=== PATIENT | female | born 1960 ===

== ENCOUNTER 2018-08-11 02:34 | Observation (INO) | payer OTHER ==
--- NOTE | 2018-08-11 03:01 | ED PDOC ---
Arrival/HPI - General Chief Complaint: Chest Pain Time Seen by Provider: 08/11/18 02:42 Historian: Patient - History of Present Illness Narrative History of Present Illness (Text): 08/11/18 02:57 Jenifer Fleming is a 57 year old female, whose past medical history includes hypertension, who presents to the emergency department complaining of chest pain. Patient states she has been experiencing intermittent chest pain radiating to her back and left arm for the past few days, worse after waking up today. Patient also reports some shortness of breath. Patient denies any abdominal pain, nausea, vomiting, diarrhea, urinary symptoms, back pain, neck pain, headache, dizziness, or any other complaints. Symptom Onset: Gradual Symptom Course: Unchanged Activities at Onset: Light Context: Home Past Medical History - Provider Review Nursing Documentation Reviewed: Yes - Reproductive Menopause: Yes - Psychiatric Hx Substance Use: No Family/Social History - Physician Review Nursing Documentation Reviewed: Yes Family/Social History: Unknown Family HX Smoking Status: Never Smoked Hx Alcohol Use: No Hx Substance Use: No Allergies/Home Meds Allergies/Adverse Reactions: Allergies No Known Allergies Allergy (Verified 08/11/18 03:14) Review of Systems - Physician Review All systems were reviewed & negative as marked: Yes - Review of Systems Constitutional: Normal. absent: Fevers Eyes: Normal ENT: Normal Respiratory: SOB Cardiovascular: Chest Pain Gastrointestinal: Normal. absent: Abdominal Pain, Diarrhea, Nausea, Vomiting Genitourinary Female: Normal. absent: Dysuria, Frequency, Hematuria, Urine Output Changes Musculoskeletal: Back Pain. absent: Neck Pain Skin: Normal. absent: Rash Neurological: Normal. absent: Headache, Dizziness Endocrine: Normal Hemo/Lymphatic: Normal Psychiatric: Normal Physical Exam Vital Signs Reviewed: Yes Vital Signs Temp Pulse Resp BP Pulse Ox 08/11/18 02:42 97.6 F 63 16 142/79 98 Temperature: Afebrile Blood Pressure: Normal Pulse: Regular Respiratory Rate: Normal Appearance: Positive for: Well-Appearing, Non-Toxic, Comfortable Pain Distress: None Mental Status: Positive for: Alert and Oriented X 3 - Systems Exam Head: Present: Atraumatic, Normocephalic Pupils: Present: PERRL Extroacular Muscles: Present: EOMI Conjunctiva: Present: Normal Mouth: Present: Moist Mucous Membranes Neck: Present: Normal Range of Motion Respiratory/Chest: Present: Clear to Auscultation, Good Air Exchange. No: Respiratory Distress, Accessory Muscle Use Cardiovascular: Present: Regular Rate and Rhythm, Normal S1, S2. No: Murmurs Abdomen: No: Tenderness, Distention, Peritoneal Signs Back: Present: Normal Inspection Upper Extremity: Present: Normal Inspection. No: Cyanosis, Edema Lower Extremity: Present: Normal Inspection. No: Edema Neurological: Present: GCS=15, CN II-XII Intact, Speech Normal Skin: Present: Warm, Dry, Normal Color. No: Rashes Psychiatric: Present: Alert, Oriented x 3, Normal Insight, Normal Concentration Medical Decision Making ED Course and Treatment: 08/11/18 02:57 Impression: 57 year old female complaining of chest pain for the past few days. Plan: -- EKG -- CXR -- Labs, cardiac enzymes -- Reassess and disposition Prior Visits: Notes and results from previous visits were reviewed. Progress Notes: Reviewed EKG, NSR at [address]-segment elevations or depressions, no T-wave inversions, normal intervals. 08/11/18 04:37 CXR reviewed, shows no acute processes. 08/11/18 05:22 Case discussed with medical record administrator international organizer and , who agree with plan. Accept pt in to hospitalist service. Pt will go to remote telemetry observation for chest pain. - Lab Interpretations I have reviewed the lab results: Yes - RAD Interpretation Insurance Claims Analyst: ED Physician - EKG Interpretation Interpreted by ED Physician: Yes Type: 12 lead EKG - Scribe Statement The provider has reviewed the documentation as recorded by the Jessica Brown Provider Scribe Attestation: All medical record entries made by the Jessica were at my direction and personally dictated by me. I have reviewed the chart and agree that the record accurately reflects my personal performance of the history, physical exam, medical decision making, and the department course for this patient. I have also personally directed, reviewed, and agree with the discharge instructions and disposition. Disposition/Present on Arrival - Present on Arrival Any Indicators Present on Arrival: No History of DVT/PE: No History of Uncontrolled Diabetes: No Urinary Catheter: No History of Decub. Ulcer: No History Surgical Site Infection Following: None - Disposition Have Diagnosis and Disposition been Completed?: Yes Diagnosis: Chest pain Disposition: HOSPITALIZED Disposition Time: 05:18 Patient Problems: Current Active Problems Problem Status Onset Chest pain Acute Condition: STABLE Discharge Instructions (ExitCare): Chest Pain (ED) Forms: [facility] (Frisian)
[2018-08-11 03:35] LABS: HEMOGLOBIN 12.8 g/dL (12.0-16.0); MEAN CELL VOLUME 90.1 fl (80.0-105.0); MEAN CORPUSCULAR HEMOGLOBIN 30.2 pg (25.0-35.0); MEAN CORPUSCULAR HGB CONC 33.5 g/dl (31.0-37.0); MEAN PLATELET VOLUME 10.1 fl (7.0-11.0); RBC 4.24 10^6/uL (3.5-6.1); RED CELL DISTRIBUTION WIDTH 12.9 % (11.5-14.5); WHITE BLOOD COUNT 7.4 10^3/uL (4.5-11.0)
[2018-08-11 03:46] LABS: ALB/GLOB RATIO 1.3 (1.1-1.8); ALBUMIN 4.1 g/dL (3.0-4.8); ALT/SGPT 32 U/L (7-56); AST/SGOT 35 U/L (14-36); BLOOD UREA NITROGEN 12 mg/dL (7-21); CALCIUM 9.3 mg/dL (8.4-10.5); GFR NON-AFRICAN AMERICAN > 60
[2018-08-11 03:49] LABS: INR 1.01; PARTIAL THROMBOPLASTIN TIME 39.3 Seconds (26.9-38.3); PROTHROMBIN TIME 11.2 SECONDS (9.4-12.5)
[2018-08-11 03:58] LABS: TROPONIN I < 0.01 ng/mL
[2018-08-11] MEDS ORDERED: Albuterol-Ipratrop 3 mg / 0.5 (3 ml) UD IH PRN (07:33)
--- NOTE | 2018-08-11 08:55 | RAD ---
Date of service: 08/11/2018 HISTORY: pain COMPARISON: No prior. FINDINGS: LUNGS: No active pulmonary disease. PLEURA: No significant pleural effusion identified, no pneumothorax apparent. CARDIOVASCULAR: No aortic atherosclerotic calcification present. Normal cardiac size. No pulmonary vascular congestion. OSSEOUS STRUCTURES: No significant abnormalities. VISUALIZED UPPER ABDOMEN: Normal. OTHER FINDINGS: None. IMPRESSION: No active disease.
[2018-08-11 09:19] LABS: HDL CHOLESTEROL 39 mg/dL (29-60)
[2018-08-11 09:30] LABS: LDL CHOLESTEROL 95 mg/dL (0-129); TROPONIN I < 0.01 ng/mL
[2018-08-11] MEDS: Enoxaparin 40 mg Syringe SC SCH (10:51)
--- NOTE | 2018-08-11 12:24 | CP.PCM.HP ---
<Valentín Stratton - Last Filed: 08/11/18 12:11> History of Present Illness - History of Present Illness History of Present Illness: Internal Medicine History and Physical (Dr. Menendez's Service) CC: Chest Pain HPI: Mrs. Fleming is a 57 year old female with a past medical history significant for HTN, unspecified valvular regurgitation and chronic neck/back pain who presents with left sided chest pain. Patient reports that earlier this morning, she was awoken from sleep with a pressure like pain on the left side of her chest with radiation to the left arm. She describes the pain as a dull pressure like sensation with an intensity of 7/10. She reports that the pain was self limited after approximately one hour with no interventions necessary. She denies ever having this pain in the past. She also endorses an episode of associated SOB that was also self limited. She had been experiencing rhinorrhea and a sore throat for the past three days that she was treating with OTC Theraflu. Of note, patient reports that she had been seen by a female drill instructor in [place] in the past because of unspecified valvular regurgitation. Patient could not recall the name of this drill instructor. Currently, patient is resting comfortably and endorses only pain in her neck and back that she reports as chronic and unchanged. Further 12 point ROS reviewed and unremarkable. PMH: As stated above PSH: Three c-sections Family History: Denies Social History: Denies any tobacco, alcohol or illicit drug use Allergies: NKDA Home Medications: As per MAR PMD: None Present on Admission - Present on Admission Any Indicators Present on Admission: No Review of Systems - Review of Systems Review of Systems: As stated in HPI, otherwise negative Past Patient History - Past Social History Smoking Status: Never Smoked - PSYCHIATRIC Hx Substance Use: No Meds Allergies/Adverse Reactions: Allergies Allergy/AdvReac Type Severity Reaction Status Date / Time No Known Allergies Allergy Verified 08/11/18 03:14 Physical Exam - Constitutional Appears: Non-toxic, No Acute Distress - Head Exam Head Exam: ATRAUMATIC, NORMOCEPHALIC - Eye Exam Eye Exam: EOMI, Normal appearance, PERRL Pupil Exam: NORMAL ACCOMODATION, PERRL - ENT Exam ENT Exam: Mucous Membranes Moist, Normal Exam - Neck Exam Neck exam: Positive for: Full Rom - Respiratory Exam Respiratory Exam: Clear to Auscultation Bilateral, NORMAL BREATHING PATTERN. absent: Accessory Muscle Use, Rales, Rhonchi, Wheezes, Respiratory Distress - Cardiovascular Exam Cardiovascular Exam: REGULAR RHYTHM, RRR, +S1, +S2. absent: Bradycardia, T achycardia, Clicks, Diastolic murmur, Gallop, Irregular Rhythm, JVD, Rubs, +S4, Systolic Murmur - GI/Abdominal Exam GI & Abdominal Exam: Normal Bowel Sounds, Soft. absent: Tenderness - Extremities Exam Extremities exam: Positive for: normal inspection - Neurological Exam Neurological exam: Alert, Normal Gait, Oriented x3 - Psychiatric Exam Psychiatric exam: Normal Affect, Normal Mood - Skin Skin Exam: Dry, Intact, Normal Color, Warm Results - Vital Signs Recent Vital Signs: Last Vital Signs Temp 97.8 F 08/11/18 06:29 Pulse 62 08/11/18 06:29 Resp 18 08/11/18 06:29 BP 137/79 08/11/18 06:29 Pulse Ox 98 08/11/18 06:29 - Labs Result Diagrams: 08/11/18 02:55 08/11/18 02:55 Labs: Laboratory Results - last 24 hr 08/11/18 08/11/18 08/11/18 02:55 02:55 02:55 WBC 7.4 RBC 4.24 Hgb 12.8 Hct 38.2 MCV 90.1 MCH 30.2 MCHC 33.5 RDW 12.9 Plt Count 230 MPV 10.1 PT 11.2 INR 1.01 APTT 39.3 H Sodium 139 Potassium 4.1 Chloride 104 Carbon Dioxide 27 Anion Gap 11 BUN 12 Creatinine 0.5 L Est GFR ( Amer) > 60 Est GFR (Non-Af Amer) > 60 Random Glucose 105 Hemoglobin A1c Calcium 9.3 Total Bilirubin 0.3 AST 35 ALT 32 Alkaline Phosphatase 169 H Lactate Dehydrogenase 523 Total Creatine Kinase 105 Troponin I < 0.01 Total Protein 7.3 Albumin 4.1 Globulin 3.1 Albumin/Globulin Ratio 1.3 Triglycerides Cholesterol LDL Cholesterol Direct HDL Cholesterol TSH 3rd Generation 08/11/18 08/11/18 08/11/18 08:50 08:50 08:50 WBC RBC Hgb Hct MCV MCH MCHC RDW Plt Count MPV PT INR APTT Sodium Potassium Chloride Carbon Dioxide Anion Gap BUN Creatinine Est GFR ( Amer) Est GFR (Non-Af Amer) Random Glucose Hemoglobin A1c 6.2 Calcium Total Bilirubin AST ALT Alkaline Phosphatase Lactate Dehydrogenase Total Creatine Kinase Troponin I < 0.01 Total Protein Albumin Globulin Albumin/Globulin Ratio Triglycerides 113 Cholesterol 144 LDL Cholesterol Direct 95 HDL Cholesterol 39 TSH 3rd Generation 2.18 Assessment & Plan - Assessment and Plan (Free Text) Assessment: 57 year old female with a past medical history significant for HTN, unspecified valvular regurgitation and chronic neck/back pain who presents with left sided chest pain. Plan: 1. Chest Pain -Chest X-Ray showed no active disease -EKG on admission showed NSR without signs of active cardiac ischemia; Repeat EKG this AM unchanged -Two serial troponins negative with the last one pending -ASCVD Risk: 2.5%; Statin therapy not indicated -Telemetry monitoring -Cardiology consulted, all recommendations appreciated 2. Prediabetes -A1c: 6.2 -Moderate Carbohydrate Consistency Diet -Counseled patient on importance of regular exercise and balanced diet 3. History of Chronic Neck/Back Pain -Ibuprofen and Flexeril PRN GI Prophylaxis: Protonix DVT Prophylaxis: Lovenox Diet: Heart Healthy/Moderate Carbohydrate Consistent Code Status: Full Code Patient seen and case discussed with attending, Dr. Menendez. Valentín Stratton PGY2 - Date & Time Date: 08/11/18 Time: 12:11 Decision To Admit - Pt Status Changed To: Hospital Disposition Of: Observation - . Bed Request Type: Remote Telemetry <Brock Menendez - Last Filed: 08/11/18 14:50> Results - Vital Signs Recent Vital Signs: Last Vital Signs Temp 98.1 F 08/11/18 12:39 Pulse 64 08/11/18 14:00 Resp 16 08/11/18 12:39 BP 115/57 L 08/11/18 12:39 Pulse Ox 98 08/11/18 06:29 - Labs Result Diagrams: 08/11/18 02:55 08/11/18 02:55 Labs: Laboratory Results - last 24 hr 08/11/18 08/11/18 08/11/18 02:55 02:55 02:55 WBC 7.4 RBC 4.24 Hgb 12.8 Hct 38.2 MCV 90.1 MCH 30.2 MCHC 33.5 RDW 12.9 Plt Count 230 MPV 10.1 PT 11.2 INR 1.01 APTT 39.3 H Sodium 139 Potassium 4.1 Chloride 104 Carbon Dioxide 27 Anion Gap 11 BUN 12 Creatinine 0.5 L Est GFR ( Amer) > 60 Est GFR (Non-Af Amer) > 60 Random Glucose 105 Hemoglobin A1c Calcium 9.3 Total Bilirubin 0.3 AST 35 ALT 32 Alkaline Phosphatase 169 H Lactate Dehydrogenase 523 Total Creatine Kinase 105 Troponin I < 0.01 Total Protein 7.3 Albumin 4.1 Globulin 3.1 Albumin/Globulin Ratio 1.3 Triglycerides Cholesterol LDL Cholesterol Direct HDL Cholesterol TSH 3rd Generation 08/11/18 08/11/18 08/11/18 08:50 08:50 08:50 WBC RBC Hgb Hct MCV MCH MCHC RDW Plt Count MPV PT INR APTT Sodium Potassium Chloride Carbon Dioxide Anion Gap BUN Creatinine Est GFR ( Amer) Est GFR (Non-Af Amer) Random Glucose Hemoglobin A1c 6.2 Calcium Total Bilirubin AST ALT Alkaline Phosphatase Lactate Dehydrogenase Total Creatine Kinase Troponin I < 0.01 Total Protein Albumin Globulin Albumin/Globulin Ratio Triglycerides 113 Cholesterol 144 LDL Cholesterol Direct 95 HDL Cholesterol 39 TSH 3rd Generation 2.18 Attending/Attestation - Attestation I have personally seen and examined this patient.: Yes I have fully participated in the care of the patient.: Yes I have reviewed all pertinent clinical information: Yes Notes (Text): 08/11/18 14:37 CP r/o ACS Prediabetes Chronic neck pain trend trop and EKG x3. So far -ve x2 will consult cardio A1c of 6.3 Pt counseled on diet and lifestyle changes Pt complained of neck pain that has been ongoing for the past 3yrs. No lymphadenopathy noted. Pt advised to get outpatient workup
[2018-08-11 15:51] VITALS: BMI 31.4
--- NOTE | 2018-08-11 20:44 | CARD ---
APPROVED REPORT Date of service: 08/11/2018 EKG Measurement Heart [id number] <Conclusion> Normal sinus rhythm Normal ECG
--- NOTE | 2018-08-11 20:53 | CARD ---
APPROVED REPORT Date of service: 08/11/2018 EKG Measurement Heart [id number] <Conclusion> Normal sinus rhythm Normal ECG
[2018-08-12 05:57] VITALS: O2SAT 98
[2018-08-12] MEDS ORDERED: Pantoprazole 40 mg EC Tab PO SCH (06:00)
[2018-08-12 06:36] LABS: BASO # 0.03 K/mm3 (0.0-2.0); BASO % 0.5 % (0.0-3.0); EOS # 0.7 (0.0-0.7); EOS % 12.1 % (1.5-5.0); HEMOGLOBIN 13.4 g/dL (12.0-16.0); LYMPH # 2.2 (1.2-3.4); LYMPH % 38.5 % (22.0-35.0); MEAN CELL VOLUME 90.1 fl (80.0-105.0); MEAN CORPUSCULAR HEMOGLOBIN 29.5 pg (25.0-35.0); MEAN CORPUSCULAR HGB CONC 32.7 g/dl (31.0-37.0); MEAN PLATELET VOLUME 10.3 fl (7.0-11.0); MONO # 0.5 (0.1-0.6); MONO % 8.2 % (1.0-6.0); RBC 4.55 10^6/uL (3.5-6.1); RED CELL DISTRIBUTION WIDTH 12.9 % (11.5-14.5); WHITE BLOOD COUNT 5.7 10^3/uL (4.5-11.0)
[2018-08-12 07:31] LABS: ALB/GLOB RATIO 1.3 (1.1-1.8); ALT/SGPT 17 U/L (7-56); AST/SGOT 33 U/L (14-36); BLOOD UREA NITROGEN 12 mg/dL (7-21); CALCIUM 9.5 mg/dL (8.4-10.5); GFR NON-AFRICAN AMERICAN > 60
[2018-08-12] MEDS: Enoxaparin 40 mg Syringe SC SCH (09:14)
[2018-08-12 12:24] VITALS: BP 125/73; RESP 18; TEMP 97.8
[2018-08-12 13:43] VITALS: PULSE 66
--- NOTE | 2018-08-12 15:40 | CP.PCM.DIS ---
<Blessing Larsen - Last Filed: 08/12/18 15:30> Provider - Provider Date of Admission: 08/11/18 05:19 Attending physician: Roselyn Muniz MD Primary care physician: none Consults: 08/11/18 09:13 Cardiology Consult Routine Comment: Consulting Provider: Byron Wen Consulting Physician: Byron Wen Reason for Consult: Chest Pain Time Spent in preparation of Discharge (in minutes): 60 Diagnosis - Discharge Diagnosis (1) Chest pain Status: Acute Hospital Course - Lab Results Lab Results: Most Recent Lab Values WBC 5.7 10^3/uL (4.5-11.0) D 08/12/18 06:10 RBC 4.55 10^6/uL (3.5-6.1) 08/12/18 06:10 Hgb 13.4 g/dL (12.0-16.0) 08/12/18 06:10 Hct 41.0 % (36.0-48.0) 08/12/18 06:10 MCV 90.1 fl (80.0-105.0) 08/12/18 06:10 MCH 29.5 pg (25.0-35.0) 08/12/18 06:10 MCHC 32.7 g/dl (31.0-37.0) 08/12/18 06:10 RDW 12.9 % (11.5-14.5) 08/12/18 06:10 Plt Count 224 10^3/uL (120.0-450.0) 08/12/18 06:10 MPV 10.3 fl (7.0-11.0) 08/12/18 06:10 Neut % (Auto) 40.7 % (50.0-68.0) L 08/12/18 06:10 Lymph % (Auto) 38.5 % (22.0-35.0) H 08/12/18 06:10 Newberry % (Auto) 8.2 % (1.0-6.0) H 08/12/18 06:10 Eos % (Auto) 12.1 % (1.5-5.0) H 08/12/18 06:10 Baso % (Auto) 0.5 % (0.0-3.0) 08/12/18 06:10 Lymph # (Auto) 2.2 (1.2-3.4) 08/12/18 06:10 Newberry # (Auto) 0.5 (0.1-0.6) 08/12/18 06:10 Eos # (Auto) 0.7 (0.0-0.7) 08/12/18 06:10 Baso # (Auto) 0.03 K/mm3 (0.0-2.0) 08/12/18 06:10 Absolute Neuts (auto) 2.33 (1.4-6.5) 08/12/18 06:10 PT 11.2 SECONDS (9.4-12.5) 08/11/18 02:55 INR 1.01 08/11/18 02:55 APTT 39.3 Seconds (26.9-38.3) H 08/11/18 02:55 Sodium 140 mmol/L (132-148) 08/12/18 06:10 Potassium 4.1 mmol/L (3.6-5.0) 08/12/18 06:10 Chloride 105 mmol/L (98-107) 08/12/18 06:10 Carbon Dioxide 29 mmol/L (21-33) 08/12/18 06:10 Anion Gap 10 (10-20) 08/12/18 06:10 BUN 12 mg/dL (7-21) 08/12/18 06:10 Creatinine 0.6 mg/dl (0.7-1.2) L 08/12/18 06:10 Est GFR ( Amer) > 60 08/12/18 06:10 Est GFR (Non-Af Amer) > 60 08/12/18 06:10 Random Glucose 93 mg/dL (70-110) 08/12/18 06:10 Hemoglobin A1c 6.2 % (4.2-6.5) 08/11/18 08:50 Calcium 9.5 mg/dL (8.4-10.5) 08/12/18 06:10 Total Bilirubin 0.4 mg/dL (0.2-1.3) 08/12/18 06:10 AST 33 U/L (14-36) 08/12/18 06:10 ALT 17 U/L (7-56) 08/12/18 06:10 Alkaline Phosphatase 102 U/L (38-126) 08/12/18 06:10 Lactate Dehydrogenase 523 U/L (333-699) 08/11/18 02:55 Total Creatine Kinase 105 U/L (35-230) 08/11/18 02:55 Troponin I < 0.01 ng/mL 08/11/18 14:50 Total Protein 7.2 g/dL (5.8-8.3) 08/12/18 06:10 Albumin 4.0 g/dL (3.0-4.8) 08/12/18 06:10 Globulin 3.1 gm/dL 08/12/18 06:10 Albumin/Globulin Ratio 1.3 (1.1-1.8) 08/12/18 06:10 Triglycerides 113 mg/dL (35-160) 08/11/18 08:50 Cholesterol 144 mg/dL (130-200) 08/11/18 08:50 LDL Cholesterol Direct 95 mg/dL (0-129) 08/11/18 08:50 HDL Cholesterol 39 mg/dL (29-60) 08/11/18 08:50 TSH 3rd Generation 2.18 mIU/mL (0.46-4.68) 08/11/18 08:50 - Hospital Course Hospital Course: Blessing Larsen, PGY-1, Discharge Summary for Dr. Muniz 57 year old female with past medical history of HTN, unspecified valvular regurgitation and chronic neck/back pain who presented with left sided chest pain. Patient reportedly woke from sleep with a pressure like pain on the left side of the chest with radiation to the left arm. Pain was dull with intensity of 7/10. Patient was self limited after one hour with no interventions necessary. Patient never had a pain like this before. Patient also had self limited shortness of breath. Patient had been seen in by a fixture maker for unspecified valvular regurgitation but had no primary care physician. Today, patient reports chronic headache and neck pain. Patient's EKG on admission showed NSR and repeat EKG also showed NSR. Troponinx3 were negative. Cardiology, Dr. Cain, reported that patient was stable and ready for discharge and that she should follow up with him for outpatient stress test. Patient also was found to have HgbA1c of 6.2 and was counseled regarding diet and exercise for prediabetes. Patient was given ibuprofen and flexeril for chronic headache, back, and neck pain. Patient was told to follow up with Dr. Gil in the [facility]. Patient was discharged with the prescription of aspirin and asked to follow up with Dr. Cain for outpatient stress test. Patient was told to return to the emergency department if patient had any recurring, worsening, or new symptoms. - Date & Time of H&P Date of H&P: 08/12/18 Time of H&P: 15:31 Discharge Exam - Head Exam Head Exam: ATRAUMATIC, NORMOCEPHALIC - Eye Exam Eye Exam: EOMI, Normal appearance, PERRL Pupil Exam: NORMAL ACCOMODATION, PERRL - Respiratory Exam Respiratory Exam: Clear to PA & Lateral, NORMAL BREATHING PATTERN - Cardiovascular Exam Cardiovascular Exam: REGULAR RHYTHM, RRR - GI/Abdominal Exam GI & Abdominal Exam: Normal Bowel Sounds, Soft. absent: Tenderness - Neurological Exam Neurological exam: Alert, CN II-XII Intact, Normal Gait, Oriented x3, Reflexes Normal - Psychiatric Exam Psychiatric exam: Normal Affect, Normal Mood - Skin Skin Exam: Dry, Intact, Normal Color, Warm Discharge Plan - Discharge Medications Prescriptions: Aspirin [Ecotrin] 81 mg PO DAILY 30 Days #30 tabec - Follow Up Plan Condition: STABLE Disposition: HOME/ ROUTINE Instructions: Prediabetes (DC), Chest Pain (DC), Chest Pain (GEN) Additional Instructions: Please follow up with new PCP, Dr. Gil, in one to two weeks. Please follow up with Dr. Cain for outpatient stress test. Please take aspirin as prescribed. Please return to the emergency department if you have any new symptoms or worsening symptoms. Referrals: [facility] [Outside] Vipul Cain MD [Staff Provider] - <Roselyn Muniz - Last Filed: 08/12/18 16:11> Provider - Provider Date of Admission: 08/11/18 05:19 Attending physician: Roselyn Muniz MD Consults: 08/11/18 09:13 Cardiology Consult Routine Comment: Consulting Provider: Byron Wen Consulting Physician: Byron Wen Reason for Consult: Chest Pain Hospital Course - Lab Results Lab Results: Most Recent Lab Values WBC 5.7 10^3/uL (4.5-11.0) D 08/12/18 06:10 RBC 4.55 10^6/uL (3.5-6.1) 08/12/18 06:10 Hgb 13.4 g/dL (12.0-16.0) 08/12/18 06:10 Hct 41.0 % (36.0-48.0) 08/12/18 06:10 MCV 90.1 fl (80.0-105.0) 08/12/18 06:10 MCH 29.5 pg (25.0-35.0) 08/12/18 06:10 MCHC 32.7 g/dl (31.0-37.0) 08/12/18 06:10 RDW 12.9 % (11.5-14.5) 08/12/18 06:10 Plt Count 224 10^3/uL (120.0-450.0) 08/12/18 06:10 MPV 10.3 fl (7.0-11.0) 08/12/18 06:10 Neut % (Auto) 40.7 % (50.0-68.0) L 08/12/18 06:10 Lymph % (Auto) 38.5 % (22.0-35.0) H 08/12/18 06:10 Newberry % (Auto) 8.2 % (1.0-6.0) H 08/12/18 06:10 Eos % (Auto) 12.1 % (1.5-5.0) H 08/12/18 06:10 Baso % (Auto) 0.5 % (0.0-3.0) 08/12/18 06:10 Lymph # (Auto) 2.2 (1.2-3.4) 08/12/18 06:10 Newberry # (Auto) 0.5 (0.1-0.6) 08/12/18 06:10 Eos # (Auto) 0.7 (0.0-0.7) 08/12/18 06:10 Baso # (Auto) 0.03 K/mm3 (0.0-2.0) 08/12/18 06:10 Absolute Neuts (auto) 2.33 (1.4-6.5) 08/12/18 06:10 PT 11.2 SECONDS (9.4-12.5) 08/11/18 02:55 INR 1.01 08/11/18 02:55 APTT 39.3 Seconds (26.9-38.3) H 08/11/18 02:55 Sodium 140 mmol/L (132-148) 08/12/18 06:10 Potassium 4.1 mmol/L (3.6-5.0) 08/12/18 06:10 Chloride 105 mmol/L (98-107) 08/12/18 06:10 Carbon Dioxide 29 mmol/L (21-33) 08/12/18 06:10 Anion Gap 10 (10-20) 08/12/18 06:10 BUN 12 mg/dL (7-21) 08/12/18 06:10 Creatinine 0.6 mg/dl (0.7-1.2) L 08/12/18 06:10 Est GFR ( Amer) > 60 08/12/18 06:10 Est GFR (Non-Af Amer) > 60 08/12/18 06:10 Random Glucose 93 mg/dL (70-110) 08/12/18 06:10 Hemoglobin A1c 6.2 % (4.2-6.5) 08/11/18 08:50 Calcium 9.5 mg/dL (8.4-10.5) 08/12/18 06:10 Total Bilirubin 0.4 mg/dL (0.2-1.3) 08/12/18 06:10 AST 33 U/L (14-36) 08/12/18 06:10 ALT 17 U/L (7-56) 08/12/18 06:10 Alkaline Phosphatase 102 U/L (38-126) 08/12/18 06:10 Lactate Dehydrogenase 523 U/L (333-699) 08/11/18 02:55 Total Creatine Kinase 105 U/L (35-230) 08/11/18 02:55 Troponin I < 0.01 ng/mL 08/11/18 14:50 Total Protein 7.2 g/dL (5.8-8.3) 08/12/18 06:10 Albumin 4.0 g/dL (3.0-4.8) 08/12/18 06:10 Globulin 3.1 gm/dL 08/12/18 06:10 Albumin/Globulin Ratio 1.3 (1.1-1.8) 08/12/18 06:10 Triglycerides 113 mg/dL (35-160) 08/11/18 08:50 Cholesterol 144 mg/dL (130-200) 08/11/18 08:50 LDL Cholesterol Direct 95 mg/dL (0-129) 08/11/18 08:50 HDL Cholesterol 39 mg/dL (29-60) 08/11/18 08:50 TSH 3rd Generation 2.18 mIU/mL (0.46-4.68) 08/11/18 08:50 Attending/Attestation - Attestation I have personally seen and examined this patient.: Yes I have fully participated in the care of the patient.: Yes I have reviewed all pertinent clinical information, including history, physical exam and plan: Yes Notes (Text): 08/12/18 16:09 57 year old female with past medical history of hypertension and chronic back/neck pain who presented with complaint of left sided chest pain. Serial cardiac enzymes were negative and ACS was ruled out. Her chest pain improved. She was seen by cardiology who recommended outpatient stress test. Patient is discharged home to follow up at [facility]. Follow up with cardiology for outpatient stress test. Roselyn Muniz MD Hospitalist.
--- NOTE | 2018-08-13 02:51 | CON ---
DATE: 08/12/2018 REQUESTING PHYSICIAN: Dr. Menendez. REASON FOR CONSULTATION: Chest pain. HISTORY OF PRESENT ILLNESS: This is a 57-year-old woman with history of hypertension who presented to the emergency room complaining of left-sided chest pain. She states that the pain awoke her from sleep and was a pressure-like sensation. She had no other associated symptoms. She presents to the emergency room for evaluation. She apparently has had chest pain on and off for a number of years and has previously been evaluated by [facility] photographer's assistant. She has had a stress test in the past, which she states was unremarkable. She was also told she had mild valvular insufficiency. Her only medication at home was aspirin. ALLERGIES: NONE. PAST MEDICAL HISTORY: She has had 3 sections. FAMILY HISTORY: Parents are from age-related illness. SOCIAL HISTORY: She does not smoke or drink. REVIEW OF SYSTEMS: Also unremarkable. PHYSICAL EXAMINATION: GENERAL: She is an overweight middle-aged woman. VITAL SIGNS: Her blood pressure is 126/60 with pulse of 76 and sinus, respirations were 16. She is afebrile. HEENT: Normocephalic and atraumatic. NECK: Supple. No JVD noted. CHEST: Clear to auscultation and percussion. HEART: PMI in normal position. No pathological gallops noted. ABDOMEN: Soft and nontender with normoactive bowel sounds. EXTREMITIES: No clubbing, cyanosis or edema. SKIN: Warm and dry. PSYCHIATRIC: Normal mood and affect. NEUROLOGIC: Awake, alert and oriented x3. No gross motor or sensory deficits noted. LABORATORY DATA: White count is 5.7. Hemoglobin and hematocrit 13.4 and 41.0 with a platelet count of 224,000. PT and PTT were normal. Potassium 4.1 p.r.n. BUN and creatinine 12 and 0.6. Three sets of cardiac enzymes are negative. Cholesterol 144, triglycerides 113, HDL 39, LDL 95. IMPRESSION: 1. Chest pain, appears somewhat atypical in nature. No clear evidence of cardiac ischemia. 2. Rest of problems as noted. RECOMMENDATIONS: From a cardiac standpoint, she appears stable for discharge home at this time. She was encouraged to follow that with her previous photographer's assistant for any further workup. We would be happy to see her in the future as needed. Vipul Cain MD
== END 2018-08-12 15:49 | disposition home or self-care (01) ==
LOC: ED 02:34 → ERH 05:19 → 2RNO 07:09
PROVIDERS: ADMIT Internal Medicine; ATTEND Internal Medicine
DX: R07.89 Other chest pain (principal); I10 Essential (primary) hypertension; M54.2 Cervicalgia; G89.29 Other chronic pain
CPT/HCPCS: 36415; 71045; 80053; 80061; 82550; 83036; 83615; 84443; 84484; 85025; 85027; 85610; 85730; 93005; 96372; 99285; G0378; J1650